=== PATIENT | female | born 1990 | race Asian ===

== ENCOUNTER 2021-08-24 10:20 | Emergency (ER) | payer OTHER, SELFPAY ==
--- NOTE | ~2021-08-24 | XR_ITS ---
EXAMINATION: XR ankle RT min 3V INDICATION: Right ankle pain, initial encounter TECHNIQUE: Four views of the right ankle are obtained. COMPARISON: None FINDINGS: There is a 2 mm heterotopic ossification projecting near the distal fibula. There is latera l soft tissue swelling of ankle. Bone alignment is normal. IMPRESSION: 1. Findings consistent with small avulsion injury of the lateral malleolus. Reviewed, dictated and finalized at location A.
--- NOTE | 2021-08-24 10:22 | ED.FALL ---
HPI - Fall General Chief Complaint: Extremity Injury, Lower Stated Complaint: fall Time Seen by Provider: 08/24/21 10:22 Source: patient Mode of arrival: ambulatory Limitations: no limitations History of Present Illness HPI Narrative: Vesta is a 31-year-old female patient presenting to the clinic today after tripping on a curb yesterday and injured her right ankle. She reports she has kept it elevated and needs but is still having lateral ankle pain and swelling. She has injured her left ankle before and had a fracture when she thought it was just a sprain, so she is concerned that she may have fractured her right ankle. She is having some pain with flexion and extension of the right ankle as well as pain with ambulation Related Data Home Medications Medication Instructions Recorded Confirmed albuterol sulfate 90 mcg/actuation 2 inhalation INHALATION Q4H PRN gm 08/06/19 05/11/21 aerosol inhaler cholecalciferol (vitamin D3) 125 5,000 unit PO DAILY cap 07/21/20 05/11/21 mcg (5,000 unit) capsule eletriptan 40 mg PO ONCE 08/24/21 08/24/21 estradiol [Imvexxy Maintenance 4 mcg VAGINAL DIRECTED 08/24/21 08/24/21 Pack] prasterone (dhea) [Intrarosa] 6.5 mg VAGINAL DIRECTED 08/24/21 08/24/21 ubrogepant [Ubrelvy] 100 mg DIRECTED 08/24/21 08/24/21 Allergies Allergy/AdvReac Type Severity Reaction Status Date / Time adhesive tape Allergy Rash Verified 08/24/21 10:40 Review of Systems Review of Systems: Pertinent positives per HPI. Patient denies any fever, chills, rash, headache, visual changes, dizziness, cough, runny nose, sore throat, shortness of breath, chest pain, palpitations, nausea, vomiting, diarrhea, constipation, abdominal pain, or any urinary issues. [facility] Past Medical History Medical History Allergies Arthritis Asthma Atrophic vaginitis BMI 25.0-25.9,adult Breast cancer Bruxism, sleep-related Easy bruising Fever blister Fungal infection of toenail Invasive ductal carcinoma of right breast in female Left ankle sprain Migraine without aura and without status migrainosus, not intractable Mild intermittent asthma in adult without complication Paronychia of second toe of left foot Seasonal allergic rhinitis Seronegative rheumatoid arthritis Tension headache, chronic Urticaria Vitamin B12 deficiency anemia Vitamin D deficiency, unspecified Weight gain, abnormal Surgical History Surgical History H/O mastectomy (~2016) bilateral History of breast reconstruction (~2016) History of tonsillectomy (~1995) Family History Family History Mother Depression Anxiety Father Hepatitis B Liver cirrhosis Grandparent Lung cancer Sibling Congenital heart defect Social History Social History Smoking status: Never smoker Alcohol intake: current Drinks per week: 1 Substance use: never Substance use type: does not use Comments At the time of my signature, I reviewed and agree with the nursing past medical, surgical, social, and family history. There is no relevant family history pertinent to the patient complaint. Exam Narrative: General: Well-developed, well nourished, in no apparent distress Head: Normocephalic, atraumatic. Cardio: Regular rate and rhythm, s1 and s2 normal, no murmur appreciated. Resp: Clear to auscultation bilaterally, no rhonchi, rales, wheezing or rubs. Musculoskeletal: No deformity, swelling and redness to the right lateral ankle with pain to palpation over the distal fibula, pain with plantarflexion and dorsiflexion against resistance, grossly normal range of motion, muscle strength strong and equal, peripheral pulse strong, no cyanosis, normal gait and station Course Course Emergency Course: [facility]
[2021-08-24 10:36] VITALS: BP 131/96; PULSE 92; RESP 18; TEMP 36.5; O2SAT 100
== END 2021-08-24 11:05 | disposition home or self-care (01) ==
PROVIDERS: Emergency Provider Nurse Practitioner Family; PCP Family Medicine
DX: S82.61XA Displaced fracture of lateral malleolus of right fibula, initial encounter for closed fracture (principal); W01.0XXA Fall on same level from slipping, tripping and stumbling without subsequent striking against object, initial encounter
CPT/HCPCS: 73610; 99213; G0463

== ENCOUNTER 2024-01-10 08:06 | Outpatient (CLI) | payer BC, SELFPAY ==
--- NOTE | 2024-02-04 17:48 | WPDHOMESLEEP ---
Sleep Study - Home Unattended Date of Study: 01/10/24 Ordering Provider: Saturnino Gonzalez MD Interpreting Provider: Enedelia Chui, DO Home Sleep Study Type: Watch PAT Height: 1.65 m Weight: 68.039 kg Body Mass Index: 25.0 Neck Circumference (inches): 14 [place]: 4 Reason for Sleep Study Difficulty falling asleep and staying asleep Sleep History The patient is a 33-year-old female that had a sleep study ordered by her primary care physician for difficulty falling asleep, maintaining sleep and excessive daytime sleepiness. The patient denies snoring. She denies stopping breathing during her sleep. She denies choking gasping during the night. She denies having trouble breathing while on her back. She does wake up with a headache in the morning. She does admit to a dry or sore mouth and or throughout in the morning. She denies nocturnal heartburn. She denies nocturia. She does wake up early and have difficulty falling asleep. She does not take any hypnotics or sedatives. She is anxious about sleep. She does admit to feeling tired and fatigued during the day. She does feel like her sleep is not refreshing and wakes up tired in the morning. She denies having the urge to fall asleep during the day. She does feel drowsy while driving. She denies sleep paralysis, cataplexy and hypnagogic / hypnopompic hallucinations. She does admit to clenching or grinding her teeth. She does admit to kicking or jerking her legs excessively. She does have a restless feeling in her legs. She does have the urge to move her legs and is worse with rest. The urge to move her legs improves with activities. The symptoms are worse in the evening and or night. They do not cause a concern distress or disturbance for the patient. She goes to bed at 10:45 p.m.. It takes her 1 hour to fall asleep. She typically gets 6 hours of sleep per night. She does not take any planned naps. She states that her sleep is more restorative on her days off. She typically gets 2-1/2 hours more sleep on her days off. The patient denies sleep walking. She denies dream enactment. She consumes 1-2 caffeinated beverages per day. She consumes 1 glass of alcohol 1-2 times per week. She denies tobacco use. She does exercise 1-[address] [facility] Past Medical History Medical History Abnormal fasting glucose (03/28/22) Glucose 107 on 03/28/2022. Fasting glucose 86 with hemoglobin A1c 4.6 on 11/04/2022. Allergies ROSARIO positive ROSARIO 1:320 with fine speckled pattern 03/28/2022. Arthritis Asthma Atrophic vaginitis Avulsion fracture of right ankle BMI 24.0-24.9, adult BMI 25.0-25.9,adult Breast cancer Bruxism, sleep-related Callus between toes Chronic neck pain (~2022) Easy bruising Hemoglobin 13.2, platelets 210 on 11/04/2022. Fever blister Fungal infection of toenail Hypersomnia Insomnia Invasive ductal carcinoma of right breast in female Left ankle sprain Migraine without aura and without status migrainosus, not intractable Mild intermittent asthma in adult without complication Nausea Nausea & vomiting Overweight (BMI 25.0-29.9) Paronychia of second toe of left foot Poison azael dermatitis Rheumatoid arthritis Seasonal allergic rhinitis Seronegative rheumatoid arthritis Rheumatoid factor less than 14, CCP less than 16, ROSARIO positive with fine speckled pattern, sed rate 6, CRP 1.6, uric acid 4.9, hepatitis a, B, C negative on 03/28/2022 Tachycardia TSH 1.08 with free T4 1.1 with hemoglobin 13.2 on 11/04/2022. Tension headache, chronic Urticaria UTI (urinary tract infection) urinalysis normal 11/04/2022. Vitamin B12 deficiency anemia Level low at 316 with hemoglobin 13.0 and folic acid 16.9 on 03/28/2022. Level slightly low at 351 with goal greater than 400 with hemoglobin 13.2 on 11/04/2022. Vitamin D deficiency, unspecified Weight gain, abnormal Surgical History Surgical History (Reviewed
[2024-02-05 13:12] VITALS: BMI 25.0
== END 2024-01-14 09:49 | disposition home or self-care (01) ==
LOC: ANHCSM 08:08
PROVIDERS: PCP Family Medicine; Visit Provider Family Medicine
DX: G47.9 Sleep disorder, unspecified (principal); G25.81 Restless legs syndrome; G47.00 Insomnia, unspecified; G47.10 Hypersomnia, unspecified
CPT/HCPCS: 95800